=== PATIENT | female | born 1975 | race Caucasian/White ===

== ENCOUNTER 2016-12-09 19:44 | Emergency (ER) | payer OTHER ==
[2016-12-09] MEDS ORDERED: TORAdol 30 mg Injection IM ONE (20:41)
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
[2016-12-09] MEDS ORDERED: TORAdol 30 mg Injection ONE (20:44)
[2016-12-09 21:48] VITALS: O2SAT 99
[2016-12-09 22:05] VITALS: BP 135/78; PULSE 76
== END 2016-12-09 21:55 | disposition home or self-care (01) ==
LOC: ED 19:44
DX: S93.401D Sprain of unspecified ligament of right ankle, subsequent encounter (principal); W20.8XXD Other cause of strike by thrown, projected or falling object, subsequent encounter
CPT/HCPCS: 96372; 99284; J1885